=== PATIENT | female | born 1935 | race Caucasian/White ===

== ENCOUNTER → 2023-06-11 12:30 | Outpatient (REF) | payer MEDICARE, MEDICAID, SELFPAY ==
--- NOTE | 2023-06-11 12:38 | CA_ITS ---
Transthoracic Echocardiogram Patient (Last, First, Middle): Nena Gross, Gender: Female Date of : 1935 Age: 88 Procedure Date: 06/11/2023 Procedure Type: Transthoracic Echocardiogram Location: [place] Height: 175.26 cm Weight: 74.84 kg BSA: 1.90 m2 Heart Rate: bpm BP: 130 / 60 mmHg Sensitizer: Referring MD: Nithin Monroe MD Symptoms: [id number] R06.00 Study Quality: Fair ECG Rhythm: Sinus Conclusions: - The left ventricular systolic function is normal. The calculated ejection fraction is 68% by biplane method. - No obvious valvular pathology seen on this study. Findings Left Ventricle Normal left ventricular cavity size. The left ventricular systolic function is normal. The calculated ejection fraction is 68% by biplane method. There is no evidence of regional wall motion abnormalities. Evidence suggests grade I (mild) diastolic dysfunction. There is mild septal and mild basal asymmetric hypertrophy. Right Ventricle Normal right ventricular cavity size and systolic function. Atria Both atria are normal in size. Aortic Valve The aortic valve structure and function is likely normal. There is no aortic valve stenosis. There is no aortic valve regurgitation. Mitral Valve The mitral valve appears normal. There is no mitral valve regurgitation. There is no mitral valve stenosis. Pulmonic Valve The pulmonic valve is likely normal. Tricuspid Valve There is trace tricuspid valve regurgitation. Tricuspid regurgitation envelope is inadequate for calculation of right ventricular systolic pressure. Great Vessels The asc aorta is normal in size. Venous The inferior vena cava is normal in size and collapses greater than 50% with inspiration. Pericardium/Pleural There is no evidence of pericardial effusion. Prior Study Comparison No prior study available for comparison. Recommendations, Care & Conclusions No obvious valvular pathology seen on this study. Measurements 2D Linear Measurements IVSd: 0.86 0.6-0.9/0.6-1.0 cm LVIDd: 4.40 3.9-5.3/4.2-5.9 cm LVIDd Index: 2.32 2.4-3.2/2.2-3.1 cm/m2 LVIDs: 2.82 2.0-3.6 cm LVPWd: 0.94 0.7-1.1 cm Ao Root: 3.10 2.1-3.5 cm LA Diam: 2.80 2.7-3.8/3.0-4.0 cm LAIDs Index: 1.47 1.5-2.3 cm/m2 LV Mass: 159.39 67-162/88-224 g LV Mass Index: 83.89 43-95/49-115 g/m2 LVOT Diam: 2.50 3.0+(-)1.3 cm 2D Systolic Function EF 4C: 65.50 >55% EF 2C: 72.40 >55% EF BiP: 67.60 >55% Mitral Valve MV Pk E: 0.58 MV PK A: 1.01 MV Decel Time: 374.00 E/A: 0.60 E'Lateral: 6.09 E'Medial: 4.57 E/E' Med: 12.80 E/E' Lat: 9.60 PHT: 109.00 MVA PHT: 2.02 Decel Ponce: 1.56 Aortic Valve AoV Pk Hung: 1.33 AoV Mn Hung: 0.86 AoV VTI: 0.28 AoV Pk Grad: 7.00 Aov Mn Grad: 4.00 CHING Cont.VTI: 3.83 LVOT LVOT Pk Hung: 0.96 LVOT Mn Hung: 0.66 LVOT VTI: 0.22 LVOT Pk Grad: 4.00 LVOT Mn Grad: 2.00 LVOT Diam: 2.50 LVOT Area: 4.91 Diastolic Function MV Pk E: 0.58 MV Pk A: 1.01 E/A: 0.60 E'Medial: 4.57 E/E' Med: 12.80 E' Laterial: 6.09 E/E' Lat: 9.60 Right Ventricle TAPSE (mm): 24.00 TVS' Hung: 12.00 Tricuspid Valve TR Pk Hung: 1.93 TR Pk Grad: 15.00 RA Press: 3.00 Great Vessels Aorta Ao Root-2D: 3.10 2.0-3.7 cm Ao Asc: 3.30 2.1-3.4 cm Pulmonary Valve PV Pk Hung: 0.91 Peak PV Grad: 3.00 Updated in Other Vendor System with Status of Final Hiram Carrillo MD electronically signed on 06/12/2023 9:19:21 AM with status of Final
== END ==
LOC: HO.CARD 12:30
PROVIDERS: PCP Internal Medicine; Visit Provider Internal Medicine
DX: R06.00 Dyspnea, unspecified (principal)
CPT/HCPCS: 93306

== ENCOUNTER → 2023-06-11 12:38 | Outpatient (BNV) | payer MEDICARE, MEDICAID, SELFPAY | PROVIDERS: PCP Internal Medicine; Visit Provider Internal Medicine | DX: I51.9 Heart disease, unspecified (principal) | CPT/HCPCS: 93306 ==